=== PATIENT | female | born 1955 | race African-American/Black ===

== ENCOUNTER → 2016-10-24 | Outpatient (CLI) | payer BC ==
[~2016-10-24] MED LIST: ATORVASTATIN; CELLCEPT 250MG250 MG PO; CELLCEPT 5500 MG/TAB PO; FISH OIL500 MG PO; HYZAAR; MAGNESIUM250 M1 PO; MULTI VITAMINS1 TAB PO; NEURONTIN100 MG/CAP; NORCO 325 MG-51 TAB; NORVASC 5MG5 MG/TAB PO; OXYCODONE; PERCOCET 325 MG1 TA2 PO; PLAQUENIL 200M200 MG PO; PREDNISONE20 MG PO; [UNRECOGNIZED DRUG - OTHER]; [UNRECOGNIZED DRUG - OTHER]
== END ==
LOC: MC.RAD 08:40
DX: Z12.31 Encounter for screening mammogram for malignant neoplasm of breast (principal)

== ENCOUNTER → 2018-02-19 | Outpatient (CLI) | payer MEDICARE, BC | LOC: MC.RAD 13:00 | DX: Z12.31 Encounter for screening mammogram for malignant neoplasm of breast (principal) ==

== ENCOUNTER → 2019-04-18 | Outpatient (CLI) | payer MEDICARE, BC | LOC: MC.RAD 14:45 | DX: Z12.31 Encounter for screening mammogram for malignant neoplasm of breast (principal) ==

== ENCOUNTER → 2019-08-01 | Outpatient (CLI) | payer BC, MEDICARE | LOC: COL.RAD 10:30 | DX: M25.572 Pain in left ankle and joints of left foot (principal) | CPT/HCPCS: J3301; Q9967 ==

== ENCOUNTER 2019-11-18 11:32 | Inpatient (IN) | payer BC, MEDICARE ==
[2019-11-18] VITALS (151 sets, daily range): BP systolic 152; BP diastolic 64–75; PULSE 108–111; TEMP 97.8–98.1; O2SAT 76–100
[~2019-11-18] VITALS: Ht 160 cm; Wt 95.7 kg
[2019-11-18 13:53] LABS: MEAN CELL VOLUME 78 fl (80.0-100.0); MEAN CORPUSCULAR HGB CONC 29 g/dl (33.0-37.0); PLATELET COUNT 235 K/mm3 (130-400); RED BLOOD COUNT 3.96 M/mm3 (4.10-5.30); REDCELL DISTRIBUTION WIDTH-CV 14.8 % (11.5-14.5)
[2019-11-18 14:03] LABS: ALBUMIN 3.7 gm/dL (3.5-5.0); BILIRUBIN,TOTAL 0.6 mg/dL (0.0-1.0); CREATININE, serum 2.06 (0.52-1.25); POTASSIUM 3.3 mmol/L (3.4-5.0); TOTAL PROTEIN 7.9 gm/dL (6.4-8.2)
[2019-11-18 14:07] LABS: HEMATOCRIT 30.7 % (37.0-47.0); HEMOGLOBIN 8.9 g/dl (12.5-16.0); MEAN CORPUSCULAR HEMOGLOBIN 22 pg (27.0-31.0)
[2019-11-18 14:11] LABS: BAND 44 % (0-10); LYMPHOCYTE 3 % (20.0-51.0); NEUTROPHILS 53 % (42.0-75.2)
[2019-11-18 14:12] LABS: ANISOCYTOSIS 1+; HYPOCHROMIA 2+; MICROCYTOSIS 1+
[2019-11-18 14:13] LABS: PLATELET ESTIMATE NORMAL (NORMAL); TARGET CELLS 1+; TEAR DROP CELLS 1+
[2019-11-18 17:19] LABS: COLLECTION METHOD CLEAN CATCH
[2019-11-18 17:30] LABS: MUCOUS Present /lpf; PH 5 (5-8); URINE APPEARANCE Clear; URINE BACTERIA Rare /hpf; URINE BILIRUBIN Negative (NEGATIVE); URINE BLOOD Negative (NEGATIVE); URINE COLOR Yellow; URINE GLUCOSE Negative (NEGATIVE); URINE KETONE Negative (NEGATIVE); URINE LEUKOCYTE ESTERASE 2+ (NEGATIVE); URINE NITRATE Negative (NEGATIVE); URINE PROTEIN(semi-quant) 1+ (NEGATIVE); URINE UROBILINOGEN Negative (NEGATIVE)
[2019-11-18] MEDS ORDERED: LIPITOR 10MG10 MG PO (18:44)
[2019-11-18] MEDS ORDERED: FLEXERIL 1010 MG/TAB PO (18:45)
[2019-11-18] MEDS ORDERED: CYMBALTA 30MG30 MG PO (18:45)
[2019-11-18] MEDS ORDERED: FERRO-TIME325 MG PO (18:46)
[2019-11-18] MEDS ORDERED: NORCO 325 MG-101 TAB PO (18:47)
[2019-11-18] MEDS ORDERED: PLAQUENIL 200M200 MG PO (18:47)
[2019-11-18] MEDS ORDERED: NEURONTIN300 MG/CAP PO (18:47)
[2019-11-18] MEDS ORDERED: HYZAAR 12.5 MG-1 TAB PO (18:48)
[2019-11-18] MEDS ORDERED: ATIVAN 1MG T1 MG/TAB PO (18:48)
[2019-11-18] MEDS ORDERED: MAG-OX 400400 MG/TAB PO (18:48)
[2019-11-18] MEDS ORDERED: CELLCEPT 5500 MG/TAB PO (18:49)
[2019-11-18] MEDS ORDERED: PREDNISONE 2.52.5 MG PO (18:50)
[2019-11-18] MEDS ORDERED: DITROPAN 5MG TAB5 MG PO (18:50)
[2019-11-18] MEDS ORDERED: PRILOSEC 20MG20 MG PO (18:50)
[2019-11-18] MEDS ORDERED: ALDACTONE 25MG25 M1 PO (18:51)
[2019-11-18] MEDS ORDERED: NEUPRO3 MG/24 HR TD (18:51)
[2019-11-18] MEDS ORDERED: TOPAMAX 25MG25 M1 PO (18:52)
[2019-11-18] MEDS ORDERED: VITAMIN D 50,1.25 MG PO (18:53)
[2019-11-19] VITALS (468 sets, daily range): BP systolic 118–165; BP diastolic 55–90; PULSE 66–101; TEMP 98–99.1; O2SAT 35–100
[2019-11-19 05:30] LABS: MEAN CELL VOLUME 75 fl (80.0-100.0); MEAN CORPUSCULAR HGB CONC 31 g/dl (33.0-37.0); PLATELET COUNT 208 K/mm3 (130-400); RED BLOOD COUNT 3.63 M/mm3 (4.10-5.30); REDCELL DISTRIBUTION WIDTH-CV 14.6 % (11.5-14.5)
[2019-11-19 05:33] LABS: HEMATOCRIT 27.2 % (37.0-47.0); HEMOGLOBIN 8.3 g/dl (12.5-16.0); MEAN CORPUSCULAR HEMOGLOBIN 23 pg (27.0-31.0)
[2019-11-19 05:39] LABS: ALBUMIN 3.1 gm/dL (3.5-5.0); BILIRUBIN,TOTAL 0.8 mg/dL (0.0-1.0); CALCIUM 8.4 mg/dL (8.4-10.2); CREATININE, serum 1.6 (0.52-1.25); POTASSIUM 4.2 mmol/L (3.4-5.0); TOTAL PROTEIN 7.1 gm/dL (6.4-8.2)
[2019-11-19 06:08] LABS: BAND 41 % (0-10); LYMPHOCYTE 2 % (20.0-51.0); METAMYELOCYTE 2 % (0-0); NEUTROPHILS 50 % (42.0-75.2); PLATELET ESTIMATE NORMAL (NORMAL)
[2019-11-19 06:09] LABS: SPHEROCYTE 1+
[2019-11-19] MEDS ORDERED: NEURONTIN300 MG/CAP PO (10:44)
--- NOTE | 2019-11-19 14:06 | NUR ---
Attempted to call report to KRISTIN Echols at this time, RN unavialable at the [facility] to transfer to room 308
--- NOTE | 2019-11-19 14:26 | NUR ---
Report phoned to KRISTIN Echols
--- NOTE | 2019-11-19 14:45 | NUR ---
PATIENT TRANSFERRED TO ROOM 308 FROM [facility]. ARRIVED ON FLOOR VIA ACCOMPANIED BY GIGI FOSTER. UPON ARRIVAL PATIENT A/O X 4. ALERT, COOPERATIVE, ANXIOUS. TRANSFERRED TO BED WITH 1:1 ASSIST. REPORTING C/O RIGHT LEG AND HIP PAIN. NO SKIN ISSUES NOTED UPON OBSERVATION. LARGE EPISODE OF INCONTINENT URINE. PERSONAL HYGIENE COMPLETED. NO C/O SOA OR CHEST PAIN. DAUGHTER IN ATTENDANCE. ORIENTED TO ROOM AND FLOOR.
--- NOTE | 2019-11-19 14:45 | NUR ---
Pt transported to room 308 - heavy 1 assist from wheelchair to bed. at bedside. KRISTIN Echols in room for transfer of care.
--- NOTE | 2019-11-19 20:40 | NUR ---
Shift assessment complete. Patient ambulated with max assist x2 and gait belt to [facility]. Did not tolerate well. Repositioned in bed with assist x3. States pain 10/10 in right hip. Prn pain medication given. Per pt, ambulating caused more pain. Discussed external catheter, pt and daughter agreeable to plan. Will continue to assess.
--- NOTE | 2019-11-19 21:00 | NUR ---
Patient remains extremely restless after IV pain medication. Unable to reposition to make her comfortable. Bed alarm going off frequently d/t patient trying to get comfortable/get out of bed. IV ativan given per request. Repositioned with assist x3. Denies further needs at this time. Will continue to monitor.
--- NOTE | 2019-11-19 22:00 | NUR ---
Patient in bed, very restless. States she has been incontinent. Devi-care provided, bed pad changed, external catheter placed per pt request. States her pain is "better." Changed into yellow gown d/t high fall risk. Patient asleep before staff left the room. Daughter, Fallon, requesting her VS be rechecked after MN. Daughter also declining SCD's. Patient appears comfortable. Bed alarm on, call light within reach. Daughter declines any further needs at this time. Will continue to monitor.
[2019-11-20] VITALS (9 sets, daily range): BP systolic 123–186; BP diastolic 51–96; PULSE 83–130; TEMP 98.1–103.2
--- NOTE | 2019-11-20 02:14 | NUR ---
Patient in bed, sleeping. Appears comfortable. Daughter requesting we not disturb her if she's sleeping. Adequate respirations. Will continue to monitor.
--- NOTE | 2019-11-20 05:33 | NUR ---
Patient in bed, awake. Daughter remains at bedside. Pt is excited that she slept all night. States pain 6/10. Prn pain medication given. External catheter noted to be leaking. Will change external catheter and bed pad. Patient agreeable to plan. Denies further needs at this time. Will continue to monitor.
[2019-11-20 05:39] LABS: MEAN CELL VOLUME 74 fl (80.0-100.0); MEAN CORPUSCULAR HGB CONC 30 g/dl (33.0-37.0); PLATELET COUNT 150 K/mm3 (130-400); RED BLOOD COUNT 3.63 M/mm3 (4.10-5.30); REDCELL DISTRIBUTION WIDTH-CV 14.9 % (11.5-14.5)
[2019-11-20 05:48] LABS: ALBUMIN 2.8 gm/dL (3.5-5.0); BILIRUBIN,TOTAL 0.5 mg/dL (0.0-1.0); CALCIUM 8.5 mg/dL (8.4-10.2); CREATININE, serum 1.34 (0.52-1.25); POTASSIUM 4.1 mmol/L (3.4-5.0); TOTAL PROTEIN 6.6 gm/dL (6.4-8.2)
[2019-11-20 06:01] LABS: HEMOGLOBIN 8.1 g/dl (12.5-16.0); MEAN CORPUSCULAR HEMOGLOBIN 22 pg (27.0-31.0)
[2019-11-20 06:12] LABS: BAND 1 % (0-10); BASOPHIL 24 % (0-2); NEUTROPHILS 64 % (42.0-75.2)
--- NOTE | 2019-11-20 09:56 | NUR ---
Initial visit; Patient thanked Financial Advisor for looking in on her and offering spiritual and emotional care, especially prayer.
--- NOTE | 2019-11-20 11:43 | NUR ---
PATIENT BACK FROM MRI. PER SUPERVISOR VENEER UNABLE TO COMPLETE MRI D/T ANXIETY AND MOVEMENT. DR HUGHES NOTIFIED. NO NEW ORDERS AT THIS TIME.
--- NOTE | 2019-11-20 13:06 | NUR ---
Follow-up visit; Patient in need of additional assistance, Bore Miner Operator contacted nurse.
--- NOTE | 2019-11-20 13:52 | NUR ---
Primary nurse was assisted with [phone] patient care by [facility] student Roxana Jean and [facility] instructor Ailin Colmenares RN-BC.
--- NOTE | 2019-11-20 15:24 | NUR ---
Song Lyricist met with patient to discuss discharge planning. Patient lives in [place] with her Cosme (ph#[phone]) [address] Vann for primary care. Patient obtains medications from [facility] with no difficulties. Patient uses a CPAP and has been using a cane for about the last week or so. Patient reports she is normally independent with ADLS but has had difficulty within the last week. Patient states her is her DPOA-HC although SW did not locate a copy in the EMR. Patient reports she plans to return home upon discharge. PT/OT ordered. SW to continue to monitor to ensure safe discharge.
[2019-11-20 15:44] LABS: COLLECTION METHOD CLEAN CATCH
[2019-11-20 15:55] LABS: PH 5 (5-8); SQUAMOUS EPITHELIAL 0-2 /hpf; URINE APPEARANCE Clear; URINE BACTERIA None Seen /hpf; URINE BILIRUBIN Negative (NEGATIVE); URINE BLOOD 2+ (NEGATIVE); URINE COLOR Yellow; URINE GLUCOSE Negative (NEGATIVE); URINE KETONE Negative (NEGATIVE); URINE LEUKOCYTE ESTERASE Negative (NEGATIVE); URINE NITRATE Negative (NEGATIVE); URINE PROTEIN(semi-quant) 2+ (NEGATIVE); URINE UROBILINOGEN Negative (NEGATIVE)
--- NOTE | 2019-11-20 19:27 | NUR ---
1700: PATIENT BACK FROM MRI, REPORT FROM FARM ASSISTANT THAT SEDATION WAS NOT USED. UPON ARRIVAL TO FLOOR PATIENT SHIVERING AND C/O BEING COLD. SEE FLOWSHEET FOR FVS OBTAINED WITH FEVER AND TACHYCARDIA. DR. HUGHES NOTIFIED. ORDERS FOR TYLENOL 650MG PO NOW AND CALL INFECTIOUS DISEASE. 1800: CALL TO DR RODRIGUEZ NOTIFIED OF FEVER AND PATIENT CONDITION. ORDERS RECEIVED FOR VANCOMYCIN 1GM NOW STAT THEN Q12 HOURS X 14 DAYS PHARMACY TO DOSE. VANCOMYCIN STARTED ORDERED. SEE FLOWSHEET FOR CONTINUED VITAL SIGN MONITORING WITH CONTINUED FEVER AND TACHYCARDIA. DR RIDER NOTIFIED. NO NEW ORDERS RECEIVED. REPORT GIVEN TO COMPOUNDING TECHNICIAN RN. DAUGHTER IN ROOM. AWARE OF PATIENT CONDITION AND PLAN OF CARE. NO CONCERNS AT THIS TIME.
--- NOTE | 2019-11-20 19:57 | NUR ---
CALL TO DR ANDRES. COMMUNICATED PATIENT CONDITION AT THIS TIME WITH CONTINUED TACHYCARDIA AND TEMPERATURE DOWN TO 99.2. REVIEWED PATIENT CHRT WITH PROVIDED. DISCUSSED LABS AND PHONE ORDERS RECEIVED FROM INFECTIOUS DISEASE. NO NEW ORDERS FOR LAB AT THIS TIME. ORDERS RECEIVED FOR LR 500ML BOLUS X 1 NOW THEN CONTINUE NS @ 125ML/HR PREVIOUSLY ORDERED. PROVIDER COMMUNICATION AND ORDERS REVIEWED WITH BISTRO ATTENDANT RN.
--- NOTE | 2019-11-20 20:00 | NUR ---
Recieved report from KRISTIN Echols. Assessment complete. Alert and oriented. Daughter at bedside. C/O pain to right hip and leg pain, rate 8/10. PRN pain meds admininstered as requested. Pt is agigated, can't get comfortable in bed. PRN Ativan administered. Scheduled meds administered. Asissted pt to BSC multiple times, 2 assist with gait belt. Will monitor pt's VS. Tele monitor in place, leads checked. Needs met. Call light within reach.
[2019-11-21] VITALS (9 sets, daily range): BP systolic 135–160; BP diastolic 59–94; PULSE 100–129; TEMP 98.6–101.8
--- NOTE | 2019-11-21 02:26 | NUR ---
Pt requesting pain meds and states she's having a hard time breathing. RR28, SpO2 96% on RA, LCTAB. HR 120's, T 100.8. PRN Dilaudid administered as requested. Elevated HOB. Placed pt on cpap, RR decreased 26. Will continue to monitor pt. Call light within reach. Dtr at bedside.
--- NOTE | 2019-11-21 03:00 | NUR ---
Pt temp 101.8, HR 124, SpO2 96% on RA, RR 28, BP 156/[address] Wyatt. Per MD, PRN 650mg Tylenol, increase NS to 150ml/hr. Orders carried out. Pt placed on cpap, RT monitored pt, HOB elevated. Will monitor pt. Call light within reach.
--- NOTE | 2019-11-21 06:24 | NUR ---
Pt assisted to recliner chair. no complaints made. Needs met. call light within reach.
--- NOTE | 2019-11-21 06:49 | NUR ---
Report given to KRISTIN Jaeger.
[2019-11-21 07:53] LABS: MEAN CELL VOLUME 75 fl (80.0-100.0); MEAN CORPUSCULAR HGB CONC 30 g/dl (33.0-37.0); PLATELET COUNT 193 K/mm3 (130-400); RED BLOOD COUNT 3.97 M/mm3 (4.10-5.30); REDCELL DISTRIBUTION WIDTH-CV 14.6 % (11.5-14.5)
[2019-11-21 07:58] LABS: HEMATOCRIT 29.8 % (37.0-47.0); HEMOGLOBIN 8.8 g/dl (12.5-16.0); MEAN CORPUSCULAR HEMOGLOBIN 22 pg (27.0-31.0)
[2019-11-21 08:03] LABS: ALBUMIN 3.2 gm/dL (3.5-5.0); BILIRUBIN,TOTAL 0.6 mg/dL (0.0-1.0); CALCIUM 8.7 mg/dL (8.4-10.2); CREATININE, serum 1.2 (0.52-1.25); POTASSIUM 3.7 mmol/L (3.4-5.0); TOTAL PROTEIN 7.6 gm/dL (6.4-8.2)
[2019-11-21 08:14] LABS: LYMPHOCYTE 2 % (20.0-51.0); NEUTROPHILS 88 % (42.0-75.2)
[2019-11-21 08:15] LABS: PLATELET ESTIMATE NORMAL (NORMAL)
--- NOTE | 2019-11-21 11:16 | NUR ---
Follow-up visit; Patient experiencing results of medications, Drying Supervisor spoke with both her and her daughter, letting them know there is a Drying Supervisor available to them throughout patient's stay. Drying Supervisor offered blessings and encouragement.
--- NOTE | 2019-11-21 13:00 | NUR ---
PT HAS BEEN ANXIOUS AND REPEATITVLY NEEDING TO GO TO BATHROOM, HIP PAIN HAS GOTTEN WORSE WITH GETTING UP SEVERAL TIMES. PT TERRI ASKED ABOUT A CATHETER, DISCUSSED THE EXTERNAL CATH, PT DAUGHTER SAID THEY HAVE TRIED IT AND IT WORKS THAT IT WOULD BE A GOOD ONE USE AGAIN. THIS NURSE APPLIED FEMALE EXTERNAT CATH
--- NOTE | 2019-11-21 13:50 | NUR ---
Primary nurse was assisted with [phone] patient care by [employer] [facility] student Roxana Jean and [employer] [employer] [employer] instructor Ailin Colmenares RN-BC.
--- NOTE | 2019-11-21 16:11 | NUR ---
Console Operator attended clinical rounds with the team. SW reviewed PT/OT notes which state patient may need post acute rehab but will continue to monitor. BYRON spoke with DUNCAN Serrano who advised patient likely will be here through the weekend. SW met with patient to discuss PT/OT notes. SW provided Medicare.gov list of SNFs and IPR units in her area. Patient will review and SW will continue to follow.
--- NOTE | 2019-11-21 19:00 | NUR ---
Pt in extreme discomfort, groaning and crying out in pain. Pt rates pain unbearable 04/26. Dilaudid was given by offgoing day shift RNHeide. Pt didn't situate in bed well. Pt report rcvd from KRISTIN Jaeger. Call light within reach. Will continue to monitor.
[2019-11-22] VITALS (8 sets, daily range): BP systolic 138–199; BP diastolic 61–81; PULSE 102–116; TEMP 99–103.1
[2019-11-22 07:10] LABS: MEAN CELL VOLUME 73 fl (80.0-100.0); MEAN CORPUSCULAR HGB CONC 30 g/dl (33.0-37.0); PLATELET COUNT 190 K/mm3 (130-400); RED BLOOD COUNT 3.79 M/mm3 (4.10-5.30); REDCELL DISTRIBUTION WIDTH-CV 14.3 % (11.5-14.5)
[2019-11-22 07:14] LABS: HEMATOCRIT 27.7 % (37.0-47.0); HEMOGLOBIN 8.4 g/dl (12.5-16.0); MEAN CORPUSCULAR HEMOGLOBIN 22 pg (27.0-31.0)
[2019-11-22 07:40] LABS: CALCIUM 8.7 mg/dL (8.4-10.2); CREATININE, serum 1.28 (0.52-1.25); POTASSIUM 3.3 mmol/L (3.4-5.0)
--- NOTE | 2019-11-22 07:41 | NUR ---
Pt had an uneventful shift. Maintained pain control, and did not express discomfort. Pt has been febrile through the night, gave tylenol and lowered temperature. Pt slept well. No further concerns Report given to KRISTIN Keller.
--- NOTE | 2019-11-22 07:52 | NUR ---
Vancomycin Follow-up Pharmacy Note Current regimen: Vancomycin 1 gm IV q12h Vancomycin trough: 11.33 Adjustments: Will increase Vancomycin to 1.25 gm IV q12h. Pharmacy will continue to monitor and check a Vancomycin trough on 11/24/19.
[2019-11-22 08:27] LABS: BAND 3 % (0-10); EOSINOPHIL 2 % (0-4); LYMPHOCYTE 16 % (20.0-51.0); NEUTROPHILS 76 % (42.0-75.2); PLATELET ESTIMATE NORMAL (NORMAL)
--- NOTE | 2019-11-22 08:30 | NUR ---
Pt assessment complete. Pt laying in bed upon entry, she arouses to voice. She is A/O x4. Pt's breathing is labored and wheezy, pt endorses SOB. Pt reports R hip pain, 8/10 PRN pain medications administered. Pt denies N/V. External catheter in place. Repositioning provided. No needs at this time. Call light within reach. Will continue to monitor.
[2019-11-22 10:04] LABS: ARTERIAL BLD GAS O2 SATURATION 94.4 % (92-100); ARTERIAL BLD GAS TCO2 CT 18.7; ARTERIAL BLOOD GAS HCO3 17.8 meq/L (22-26); ARTERIAL BLOOD GAS PO2 67.5 mmHg (80-100); ARTERIAL BLOOD GAS pH 7.44 (7.35-7.45)
--- NOTE | 2019-11-22 18:30 | NUR ---
PT report received from Arianna FOSTER at bedside. PT is resting in bed and reports that she is having some pain to her right foot. When this contract technical writer moves or touched PT foot PT is noted to pull back and make pain sounds. Call light within reach and bedside table is at the side of bed with beverages within reach. Will continue to monitor.
--- NOTE | 2019-11-22 19:00 | NUR ---
Pt continued to report pain to R hip, PRN pain medications administered. Pt placed on 2L O2 via NC for SOB and per ABG results. Pt did sleep for a couple of hours during the afternoon. External catheter still in place. Repositioning done. Pt did not get out of bed today. Pt eating at this time. No needs at this time. Call light within reach.
--- NOTE | 2019-11-22 20:00 | NUR ---
PT is resting in bed with pain at her right foot with any movement or touch. PT daughter is at bedside. PT repositioned to her rightside and requires slow delicate movements to reduce pain with movement. PT is noted to have edema to her bilat feet and warmth to bilat L.E. PT has external catheter in place D/T pain with any movement resulting in difficulty using bedpan, bedside commode, bathroom, or with changing briefs. PT is A&Ox4, is able to make wants/needs known and has call light at her side. Bedside table at side of bed with beverages within reach. No s/s of distress noted at this time. Patient is watching TV and is noted to have tachypnea which this program writer suspects is related to PT's paim. Will continue to monitor.
--- NOTE | 2019-11-22 22:00 | NUR ---
PT has continued to have pain to her right foot and left hip requiring her PRN Dilaudid that helps but does not bring PT's pain down to a manageable level. PT and daughter educated on PO Enigma and that with PT's pain level and reduced relief she has been receiving from the IV Dilaudid that this residential mortgage underwriter advises that she take her PRN PO Enigma at this time as well so that she can receive longer acting pain relief and the IV Dilaudid at this time so that her pain can quickly become reduced which will then allow the Enigma to be more effective. PT and daughter state understanding and request both PRN medications be given. PT has been tolerating her IV Dilaudid without respiratory depression. Will continue to monitor. Call light within reach.
[2019-11-23] VITALS (7 sets, daily range): BP systolic 112–142; BP diastolic 58–71; PULSE 86–114; TEMP 98.7–102
--- NOTE | 2019-11-23 03:38 | NUR ---
PT has had more pain relief since taking both her PRN Dilaudid and [place] at about 2230 hours. PT has been resting peacefully in bed alternating between lying in bed with eyes open and closed with daughter at bedside. PT has been easy to arouse when she has had her eyes closed. PT has needed another dose of her PO norco but has not needed anymore IV Dilaudid since last administration at about 2220. PT is resting peacefully in bed wearing CPAP with eyes closed and TV off. Daughter remains at bedside. Call light within reach and beverage is on bedside table within reach. No s/s of distress noted. Will continue to monitor.
--- NOTE | 2019-11-23 07:00 | NUR ---
PT report given to Arianna FOSTER. PT resting in bed with eyes closed and no s/s of distress noted.
[2019-11-23 07:48] LABS: MEAN CELL VOLUME 75 fl (80.0-100.0); MEAN CORPUSCULAR HGB CONC 30 g/dl (33.0-37.0); PLATELET COUNT 222 K/mm3 (130-400); RED BLOOD COUNT 3.37 M/mm3 (4.10-5.30); REDCELL DISTRIBUTION WIDTH-CV 14.6 % (11.5-14.5)
[2019-11-23 07:50] LABS: HEMATOCRIT 25.2 % (37.0-47.0); HEMOGLOBIN 7.6 g/dl (12.5-16.0); MEAN CORPUSCULAR HEMOGLOBIN 23 pg (27.0-31.0)
[2019-11-23 08:02] LABS: CALCIUM 8.7 mg/dL (8.4-10.2); CREATININE, serum 1.46 (0.52-1.25); MAGNESIUM 1.8 mg/dL (1.6-2.3); POTASSIUM 3.3 mmol/L (3.4-5.0)
[2019-11-23 08:39] LABS: BAND 3 % (0-10); EOSINOPHIL 1 % (0-4); LYMPHOCYTE 8 % (20.0-51.0); METAMYELOCYTE 2 % (0-0); NEUTROPHILS 81 % (42.0-75.2)
[2019-11-23 08:41] LABS: MICROCYTOSIS 1+; PLATELET ESTIMATE NORMAL (NORMAL)
--- NOTE | 2019-11-23 09:12 | NUR ---
PT aox3. Able to make needs known. reports rt hip, leg and great toe tenderness. rt leg non-pitting 2+ edema. no warmth or redness noted. pt on Heparin. leg elevated on pillow to assist with edema. pt encouraged to move extremity more. weak moist cough without exudate. pt reports 'feeling better' after breathing tx. lung sounds clear with lt lower lobe diminished. tolerating new IVABX. tolerating PO intake. pt able to roll from side to side with much effort on her end and min to mod assistance by staff due to pain. skin intact. external catheter in place and draining.
[2019-11-24] VITALS (8 sets, daily range): BP systolic 90–131; BP diastolic 40–65; PULSE 75–121; TEMP 97.6–103
--- NOTE | 2019-11-24 05:50 | NUR ---
PT WENT FROM 102 TEMP TO 98.8. I.S. ENCOURAGED. PERCOCET FOR RLE PAIN.
--- NOTE | 2019-11-24 07:00 | NUR ---
Pt laying in bed. Has c/o pain and discomfort. Student Nurse Manasa to do assessment and medication administration. Talked to Physical Therapy regarding physical therapy and medication administration to help with PT. Call light within reach, breakfast is being eaten at this time. Will continue to monitor pain. No further concern at this time.
[2019-11-24 08:43] LABS: MEAN CELL VOLUME 74 fl (80.0-100.0); MEAN CORPUSCULAR HGB CONC 30 g/dl (33.0-37.0); PLATELET COUNT 193 K/mm3 (130-400); RED BLOOD COUNT 3.21 M/mm3 (4.10-5.30); REDCELL DISTRIBUTION WIDTH-CV 14.4 % (11.5-14.5)
[2019-11-24 08:47] LABS: HEMATOCRIT 23.7 % (37.0-47.0); HEMOGLOBIN 7.2 g/dl (12.5-16.0); MEAN CORPUSCULAR HEMOGLOBIN 22 pg (27.0-31.0)
[2019-11-24 08:52] LABS: ALBUMIN 2.7 gm/dL (3.5-5.0); BILIRUBIN,TOTAL 0.2 mg/dL (0.0-1.0); CALCIUM 8.7 mg/dL (8.4-10.2); CREATININE, serum 1.69 (0.52-1.25); TOTAL PROTEIN 6.8 gm/dL (6.4-8.2)
--- NOTE | 2019-11-24 08:53 | NUR ---
Patient is alert and oriented.complains of right hip pain, worse on movement. Patient shows no sign og skin breakdown on assessment.Physical therapy in to work with patient.
--- NOTE | 2019-11-24 09:19 | NUR ---
Follow-up; Patient with Physical Therapist but appeared happy to see Furnace Caretaker who wished her a "Good morning," and will see her later.
[2019-11-24 09:39] LABS: ANISOCYTOSIS 2+; BAND 5 % (0-10); EOSINOPHIL 3 % (0-4); HYPOCHROMIA 2+; LYMPHOCYTE 22 % (20.0-51.0); METAMYELOCYTE 3 % (0-0); MICROCYTOSIS 1+; NEUTROPHILS 59 % (42.0-75.2); PLATELET ESTIMATE NORMAL (NORMAL); POIKILOCYTOSIS 1+
--- NOTE | 2019-11-24 09:44 | NUR ---
Computer Help Desk Specialist attended clinical rounds with the team. Patient reports she still has pain, especially when coughing. SW met with patient to revisit potential need for post acute rehab. Patient states she needs to talk with her who should be here this afternoon. SW will follow up with patient and this afternoon.
--- NOTE | 2019-11-24 12:54 | NUR ---
Pt spiked a fever of 102.8, gave tylenol 650mg to reduce, and EKG was performed. Will continue to monitor.
--- NOTE | 2019-11-24 16:24 | NUR ---
Tile Grinder followed up with patient who reports her will not be here until after 1700. SW contacted patient's Cosme and left a message. SW to continue to follow.
--- NOTE | 2019-11-24 17:30 | NUR ---
PT IV RESTARTED BY KRISTIN HERNANDEZ. LR IS RUNNING AT 1000ML/HR. PT HAS COMPLAINT OF PAIN 04/26. DILAUDID 0.5MG GIVEN. PT STATES NO MORE NEEDS AT THIS TIME. WILL CONTINUE TO MONITOR. CALL LIGHT WITHIN REACH.
--- NOTE | 2019-11-24 19:31 | NUR ---
REPORT GIVEN TO KRISTIN VASQUEZ. NO FURTHER CONCERNS
--- NOTE | 2019-11-24 19:32 | NUR ---
Received report from Elba. Seen patient awake, lying on bed. on the bedside. With INT on left forearm, infusing Levofloxacin. With external catheter. Patient is alert and oriented. With pain on her right hip.
--- NOTE | 2019-11-24 20:50 | NUR ---
Patient states she has pain on her right hip and leg, pain score of 5/10. [place] PRN given.
--- NOTE | 2019-11-25 00:50 | NUR ---
Patient complains of pain on her rip hip and leg. pain score of 6/10. Dilaudid PRN given. Patient on NPO now. Instructed and aware.
[2019-11-25 03:23] VITALS: BP 141/63; PULSE 96; TEMP 99
--- NOTE | 2019-11-25 06:04 | NUR ---
Patient was afebrile the whole shift. With complains of pain on her right hip and leg. Dilaudid PRN given. Maintained on NPO. Will endorse to day shift nurse.
[2019-11-25 07:41] LABS: BASO % 0.3 % (0.0-2.0); EOS # 0.2 (0.0-0.7); EOS % 2.6 % (0-4.0); GRAN # 5.2 (1.4-6.5); GRAN % 67.8 % (42.2-75.2); LYMPH # 1.2 (1.2-3.4); LYMPH % 15.8 % (20.0-51.0); MEAN CELL VOLUME 75 fl (80.0-100.0); MEAN CORPUSCULAR HGB CONC 29 g/dl (33.0-37.0); MONO # 0.9 (0.1-0.6); MONO % 12.1 % (1.7-9.3); PLATELET COUNT 238 K/mm3 (130-400); RED BLOOD COUNT 3.31 M/mm3 (4.10-5.30); REDCELL DISTRIBUTION WIDTH-CV 14.6 % (11.5-14.5)
[2019-11-25 07:44] LABS: HEMATOCRIT 24.8 % (37.0-47.0); HEMOGLOBIN 7.3 g/dl (12.5-16.0); MEAN CORPUSCULAR HEMOGLOBIN 22 pg (27.0-31.0)
[2019-11-25 08:01] VITALS: BP 119/73; PULSE 69; TEMP 98.9
[2019-11-25 08:03] LABS: CALCIUM 8.8 mg/dL (8.4-10.2); CREATININE, serum 1.62 (0.52-1.25)
--- NOTE | 2019-11-25 10:47 | NUR ---
Follow-up visit; Patient thanked Service Assistant for looking in on her again today, offering comfort, strength and spiritual care, especially prayer. Patient appears to not be as confused and perhaps a little stronger. Service Assistant will continue to offer support.
[2019-11-25 14:42] VITALS: BP 146/87; PULSE 113; TEMP 99
--- NOTE | 2019-11-25 15:13 | NUR ---
Moulder Operator attended clinical rounds with the team then met with patient and her daughter, Fallon to follow up on post acute rehab. Patient and patient's daughter advised they need to talk with patient's Cosme before making a decision. SW advised that a choice needed to be made prior to day of discharge. SW provided contact information to patient's daughter Fallon. SW provided update to Hospitalist. SW to continue to follow.
[2019-11-25 17:08] VITALS: BP 155/71; PULSE 106; TEMP 103
--- NOTE | 2019-11-25 19:30 | NUR ---
REPORT GIVEN TO KRISTIN Oreilly. PT STATES NO NEEDS FOR ANYTHING RIGHT NOW. NO FURTHER CONCERNS AT THIS TIME.
[2019-11-25 19:49] VITALS: BP 126/63; PULSE 98; TEMP 100.2
--- NOTE | 2019-11-25 20:10 | NUR ---
Pt doing ok. Alert and oriented, with vss, other than temp. Fever or 100.3. Has been having fevers previously. Asymptommatic. Heart and lung sounds normal. Bowel sounds hypoactive all quad. Has external cath in place, clear yellow urine. STates she has not had BM since shes been here, on stool softener and miralax. BLE edema, 1-2+. Pedal pulses weak. Does c/o pain to right hip, prn norco given. PT denies needs. Call light within reach, will continue to monitor
--- NOTE | 2019-11-25 21:32 | NUR ---
Pt calls and c/o right hip and leg pain, prn flexeril given along with ativan.
[2019-11-25 23:48] VITALS: BP 124/74; PULSE 83; TEMP 99.2
[2019-11-26 04:06] VITALS: BP 128/62; PULSE 82; TEMP 99.1
--- NOTE | 2019-11-26 05:46 | NUR ---
Pt has done well throughout night, no new complaints. Does still c/o R hip pain. PRN norco given. PT receiving doxy, does c/o mild burning but no infiltration noted. Pt denies needs at this time. CAll light within reach, will continue to monitor
[2019-11-26 06:20] LABS: BASO % 0.4 % (0.0-2.0); EOS # 0.2 (0.0-0.7); GRAN % 51.8 % (42.2-75.2); LYMPH # 2.6 (1.2-3.4); LYMPH % 33.9 % (20.0-51.0); MEAN CELL VOLUME 75 fl (80.0-100.0); MEAN CORPUSCULAR HGB CONC 29 g/dl (33.0-37.0); MEAN PLATELET VOLUME 13.4 fl (7.4-10.4); MONO # 0.8 (0.1-0.6); PLATELET COUNT 227 K/mm3 (130-400); RED BLOOD COUNT 3.27 M/mm3 (4.10-5.30); REDCELL DISTRIBUTION WIDTH-CV 14.6 % (11.5-14.5)
[2019-11-26 06:24] LABS: CALCIUM 8.7 mg/dL (8.4-10.2); CREATININE, serum 1.48 (0.52-1.25); POTASSIUM 3.6 mmol/L (3.4-5.0)
[2019-11-26 06:31] LABS: HEMATOCRIT 24.5 % (37.0-47.0); HEMOGLOBIN 7.2 g/dl (12.5-16.0); MEAN CORPUSCULAR HEMOGLOBIN 22 pg (27.0-31.0)
--- NOTE | 2019-11-26 07:00 | NUR ---
Report rcvd from KRISTIN Oreilly. Pt sleeping in bed at time of bedside report. No concerns at this time. No further concerns.
[2019-11-26 08:26] VITALS: BP 114/53; PULSE 88; TEMP 98.7
--- NOTE | 2019-11-26 10:46 | NUR ---
Rheostat Assembler attended clinical rounds with the team. Patient to be transferred to [facility]. No additional needs at this time.
--- NOTE | 2019-11-26 11:01 | NUR ---
PT HAS BEEN ACCEPTED TO [facility] IN [place]. WILL AWAIT TRANSPORT INSTRUCTIONS.
[2019-11-26 11:52] VITALS: BP 122/59; PULSE 96; TEMP 99.3
--- NOTE | 2019-11-26 12:18 | NUR ---
Follow-up visit; Patient thanked Water And Fire Technician for looking in on her again today and wishing her well.
--- NOTE | 2019-11-26 12:51 | NUR ---
Pt has been picked up by [facility] for transfer to [facility] in [place]. Contacted KRISTIN Schmidt at [facility] to inform her of departure time. No further concerns.
== END 2019-11-26 12:51 | disposition short-term general hospital (02) | DRG 872 ==
LOC: COL.ER 11:32 → IMCU 17:08 → MEDICAL 17:08
PROVIDERS: Emergency Medicine; Nurse Practitioner Family; Physician Assistant; Student in an Organized Health Care Education/Training Program; ADMIT Hospitalist
DX: A41.3 Sepsis due to Hemophilus influenzae (principal); N39.0 Urinary tract infection, site not specified; N17.9 Acute kidney failure, unspecified; E87.2 Acidosis; M32.9 Systemic lupus erythematosus, unspecified; R65.20 Severe sepsis without septic shock; M32.14 Glomerular disease in systemic lupus erythematosus; I12.9 Hypertensive chronic kidney disease with stage 1 through stage 4 chronic kidney disease, or unspecified chronic kidney disease; M51.36 Other intervertebral disc degeneration, lumbar region; G43.909 Migraine, unspecified, not intractable, without status migrainosus; G62.9 Polyneuropathy, unspecified; M54.31 Sciatica, right side; G47.33 Obstructive sleep apnea (adult) (pediatric); N18.9 Chronic kidney disease, unspecified; E78.5 Hyperlipidemia, unspecified; F32.9 Major depressive disorder, single episode, unspecified; F41.9 Anxiety disorder, unspecified; N32.81 Overactive bladder; K21.9 Gastro-esophageal reflux disease without esophagitis; E87.6 Hypokalemia; D50.9 Iron deficiency anemia, unspecified; Z79.891 Long term (current) use of opiate analgesic; Z79.52 Long term (current) use of systemic steroids; Z88.6 Allergy status to analgesic agent; Z88.2 Allergy status to sulfonamides
CPT/HCPCS: 99223-AI; 99231-AI; 99232-AI; 99233-AI; 99239; A4216; J0696; J1170; J1644; J1720; J1956; J2060; J2185; J2250; J2405; J2543; J2704; J3370; J3475; J3480; J7030; J7050; J7120; J7517

== ENCOUNTER 2019-12-04 07:10 | Outpatient (RCR) | payer BC, MEDICARE ==
[~2019-12-04] VITALS: Ht 160 cm; Wt 107.0 kg
[~2019-12-04 07:10] MED LIST changes: +ALDACTONE 25MG25 M1 PO; +ATIVAN 1MG T1 MG/TAB PO; +CYMBALTA 30MG30 MG PO; +DITROPAN 5MG TAB5 MG PO; +FERRO-TIME325 MG PO; +FLEXERIL 1010 MG/TAB PO; +HYZAAR 12.5 MG-1 TAB PO; +LIPITOR 10MG10 MG PO; +MAG-OX 400400 MG/TAB PO; +NEUPRO3 MG/24 HR TD; +NEURONTIN300 MG/CAP PO; +NORCO 325 MG-101 TAB PO; +PREDNISONE 2.52.5 MG PO; +PRILOSEC 20MG20 MG PO; +TOPAMAX 25MG25 M1 PO; +VITAMIN D 50,1.25 MG PO
[2019-12-04 08:16] VITALS: BP 99/59; PULSE 67; TEMP 97.8
== END 2019-12-04 08:40 | disposition home or self-care (01) ==
LOC: EUO 07:10
DX: R78.81 Bacteremia (principal)
CPT/HCPCS: J0696

== ENCOUNTER 2020-06-14 10:11 | Day surgery (SDC) | payer BC, MEDICARE ==
[2020-06-14] VITALS (9 sets, daily range): BP systolic 93–138; BP diastolic 48–88; PULSE 49–66; TEMP 98.3
[~2020-06-14] VITALS: Ht 162.6 cm; Wt 115.2 kg
[2020-06-14] MEDS ORDERED: HYZAAR 12.5 MG-1 TAB PO (10:50)
[2020-06-14] MEDS ORDERED: ASPIRIN E.C. 8181 MG PO (10:54)
[2020-06-14] MEDS ORDERED: PLAQUENIL 200M200 MG PO (10:55)
[2020-06-14] MEDS ORDERED: CELLCEPT 5500 MG/TAB PO (10:55)
[2020-06-14] MEDS ORDERED: TYLENOL 500MG500 MG PO (10:56)
[2020-06-14 11:38] LABS: CALCIUM 8.9 mg/dL (8.4-10.2); CREATININE, serum 1.28 (0.52-1.25); INR 1.1 (0.8-3.0); POTASSIUM 3.7 mmol/L (3.4-5.0); PROTHROMBIN TIME 12.1 SECONDS (9.7-12.8)
[2020-06-14 11:40] LABS: MEAN CELL VOLUME 77 fl (80.0-100.0); MEAN CORPUSCULAR HGB CONC 30 g/dl (33.0-37.0); MEAN PLATELET VOLUME 12.8 fl (7.4-10.4); PLATELET COUNT 197 K/mm3 (130-400); RED BLOOD COUNT 4.18 M/mm3 (4.10-5.30); REDCELL DISTRIBUTION WIDTH-CV 15.2 % (11.5-14.5)
[2020-06-14 11:59] LABS: HEMOGLOBIN 9.8 g/dl (12.5-16.0); MEAN CORPUSCULAR HEMOGLOBIN 23 pg (27.0-31.0)
[2020-06-14 12:00] LABS: HEMATOCRIT 32.3 % (37.0-47.0)
--- NOTE | 2020-06-14 13:55 | NUR ---
SEE MERGE DOCUMENTATION FOR MEDICATION ADMINISTRATION TIMES AND INTRA/POST PROCEDURE SEDATION ASSESSMENTS.
--- NOTE | 2020-06-14 14:15 | NUR ---
Pt is back from metallurgical laboratory assistant, tr band in place, cms intact distal.
--- NOTE | 2020-06-14 18:00 | NUR ---
Pt ready for discharge. TR band was deflated without any problem over the course of an hour. cms remains intact distal. site covered with bandaid, dressed with gauze and coban. Pt has been amb to br and in room with steady gait, she was able to get dressed and is ready to go. iv dc'd with cath intact, dressing was applied. to exit via wheelchair.
== END 2020-06-14 18:02 | disposition home or self-care (01) ==
LOC: COL.CAR 10:11
PROVIDERS: Internal Medicine Cardiovascular Disease
DX: I25.110 Atherosclerotic heart disease of native coronary artery with unstable angina pectoris (principal); G47.33 Obstructive sleep apnea (adult) (pediatric); E66.9 Obesity, unspecified; D64.9 Anemia, unspecified; K21.9 Gastro-esophageal reflux disease without esophagitis; G25.81 Restless legs syndrome; F32.9 Major depressive disorder, single episode, unspecified; J45.909 Unspecified asthma, uncomplicated; N05.9 Unspecified nephritic syndrome with unspecified morphologic changes; I10 Essential (primary) hypertension; E78.5 Hyperlipidemia, unspecified; G62.9 Polyneuropathy, unspecified; Z88.6 Allergy status to analgesic agent; Z88.1 Allergy status to other antibiotic agents; Z20.828 Contact with and (suspected) exposure to other viral communicable diseases
CPT/HCPCS: J1644; J2250; J3010; Q9967

== ENCOUNTER → 2021-09-01 | Outpatient (CLI) | payer OTHER, MEDICARE ==
[~2021-09-01] MED LIST changes: +ASPIRIN E.C. 8181 MG PO; +TYLENOL 500MG500 MG PO
== END ==
LOC: MC.RAD 11:45
DX: Z12.31 Encounter for screening mammogram for malignant neoplasm of breast (principal)

== ENCOUNTER → 2022-10-25 | Outpatient (CLI) | payer MEDICARE, OTHER | LOC: MC.RAD 13:45 | DX: Z12.31 Encounter for screening mammogram for malignant neoplasm of breast (principal) ==

== ENCOUNTER 2022-11-28 18:36 | Inpatient (IN) | payer MEDICARE ==
[~2022-11-28] VITALS: Ht 165.1 cm; Wt 116.0 kg
[2022-11-28 19:58] LABS: BASO % 0.2 % (0.0-2.0); GRAN # 10.7 K/mm3 (1.4-6.5); LYMPH # 0.8 K/mm3 (1.2-3.4); LYMPH % 6.2 % (20.0-51.0); MEAN CELL VOLUME 76 fl (80.0-100.0); MEAN CORPUSCULAR HGB CONC 31 g/dl (33.0-37.0); MEAN PLATELET VOLUME 12.2 fl (7.4-10.4); MONO # 1.2 K/mm3 (0.1-0.6); MONO % 9.2 % (1.7-9.3); PLATELET COUNT 225 K/mm3 (130-400); RED BLOOD COUNT 4.25 M/mm3 (4.10-5.30); REDCELL DISTRIBUTION WIDTH-CV 14.5 % (11.5-14.5)
[2022-11-28 20:00] LABS: HEMATOCRIT 32.1 % (37.0-47.0); HEMOGLOBIN 9.8 g/dl (12.5-16.0); MEAN CORPUSCULAR HEMOGLOBIN 23 pg (27-31)
[2022-11-28 20:17] LABS: ALBUMIN 3.2 gm/dL (3.4-4.8); BILIRUBIN,TOTAL 0.3 mg/dL (0.2-1.2); C-REACTIVE PROTEIN 24.61 mg/dL (0.00-0.50); CALCIUM 9.7 mg/dL (8.4-10.2); CREATININE, serum 1.51 mg/dL (0.57-1.11); POTASSIUM 3.7 mmol/L (3.5-4.5); TOTAL PROTEIN 8.3 gm/dL (6.2-8.1)
[2022-11-28 20:45] LABS: COLLECTION METHOD CLEAN CATCH
[2022-11-28 20:59] LABS: URINE APPEARANCE Clear (CLEAR/HAZY); URINE COLOR Yellow (YELLOW)
[2022-11-28 21:00] LABS: URINE BLOOD Negative (NEGATIVE); URINE GLUCOSE Negative (NEGATIVE); URINE KETONE Negative (NEGATIVE); URINE NITRATE Negative (NEGATIVE); URINE PROTEIN(semi-quant) 2+ (NEGATIVE); URINE UROBILINOGEN 0.2 E.U/dL (0.2-1.0)
[2022-11-28 21:11] LABS: SQUAMOUS EPITHELIAL 0-2 /hpf (0-10); URINE BACTERIA None Seen /hpf (NONE SEEN); URINE RBC 0-2 /hpf (0-2)
--- NOTE | 2022-11-28 21:15 | NUR ---
Vancomycin Initial Dosing Pharmacy Note Ordering provider: FRED Indication/duration: CELLULITIS - 5 DAYS TOTAL LABS: SCR 1.51, ADJUSTED BODY WEIGHT 84 KG, CRCL ~45 ML/MIN Recommendation: 2000 MG LOADING DOSE THIS EVENING, THEN START 1500 MG Q24 HOURS TOMORROW, 5 DAYS TOTAL THERAPY. Loading dose: 2 grams Maintenance dose: 1.5 grams every 24 hours Trough goal: 10-15 ug/mL NO TROUGH ORDERED AT THIS TIME. PATIENT IS ALSO RECEIVING CEFTRIAXONE X5 DAYS FOR CELLULITIS
[2022-11-28 22:39] VITALS: BP 144/55; PULSE 88; TEMP 99.1
--- NOTE | 2022-11-28 22:56 | NUR ---
PATIENT ESCORTED BY THIS NURSE FROM THE EMERGENCY DEPARTMENT TO ROOM 358. AOX4 AND PLEASANT. SHE WAS ABLE TO MOVE HERSELF BY SLIDING FROM THE ED CART TO THE BED. SHE IS VERY WEAK AND COMPLAINING OF 3/10 PAIN IN LLE, WAS GIVEN MORPHINE IN THE ED. NS IS RUNNING AT 75ML/HR. ON VANCOMYCIN AND ROCEPHIN. HAS A BRIEF ON D/T INCONTINENCE. SHE HAS NOTABLE SWELLING TO BLE AND A PURPLE/SWOLLEN LEFT MIDDLE TOE. CALL LIGHT IN REACH. BED IN LOWEST POSITION. VSS. SHE IS ON FALL RISK PROTOCAL.
--- NOTE | 2022-11-28 23:38 | NUR ---
THIS NURSE PLACED A PUREWICK D/T PATIENT BEING LETHARGIC AND UNABLE TO PIVOT TO COMMODE AT THIS TIME. SHE IS AWARE OF SITUATION AND AGREES TO PUREWICK. SHE WAS ALSO GIVEN 240ML OF GRAPE JUICE, 800ML OF WATER, AND A SANDWICH BOX. BED IN LOWEST POSITION. CALL LIGHT IN REACH.
[2022-11-28 23:40] VITALS: BP 130/49; PULSE 93; TEMP 98.3
[2022-11-29 03:42] VITALS: BP 131/55; PULSE 78; TEMP 97.8
--- NOTE | 2022-11-29 05:50 | NUR ---
ORTHOPEDICS CALLED DUE TO LEFT MIDDLE TOE FRACTURE. THEY WILL SEE HER THIS MORNING.
[2022-11-29 06:21] LABS: BASO % 0.3 % (0.0-2.0); EOS % 0.3 % (0.0-4.0); GRAN # 7.8 K/mm3 (1.4-6.5); GRAN % 71.6 % (42.2-75.2); LYMPH # 1.5 K/mm3 (1.2-3.4); LYMPH % 13.8 % (20.0-51.0); MEAN CELL VOLUME 76 fl (80.0-100.0); MEAN CORPUSCULAR HGB CONC 31 g/dl (33.0-37.0); MEAN PLATELET VOLUME 13.2 fl (7.4-10.4); MONO # 1.5 K/mm3 (0.1-0.6); MONO % 13.6 % (1.7-9.3); PLATELET COUNT 189 K/mm3 (130-400); RED BLOOD COUNT 3.73 M/mm3 (4.10-5.30); REDCELL DISTRIBUTION WIDTH-CV 14.7 % (11.5-14.5)
[2022-11-29 06:22] LABS: HEMATOCRIT 28.4 % (37.0-47.0); HEMOGLOBIN 8.7 g/dl (12.5-16.0); MEAN CORPUSCULAR HEMOGLOBIN 23 pg (27-31)
[2022-11-29 06:34] LABS: CALCIUM 9.1 mg/dL (8.4-10.2); CREATININE, serum 1.34 mg/dL (0.57-1.11); POTASSIUM 3.5 mmol/L (3.5-4.5)
--- NOTE | 2022-11-29 06:40 | NUR ---
appears to be dozing, bedside shift report received from KRISTIN Nelson, Dr Calvillo in to see patient, has been incontinent of urine and CNAs in and care provided
[2022-11-29 07:11] VITALS: BP 135/56; PULSE 82; TEMP 98
--- NOTE | 2022-11-29 07:40 | NUR ---
appears to be dozing, awakened and full assessment completed, see interventions for further info, assisted her with ordering breakfast, vascular lab in to complete doppler
--- NOTE | 2022-11-29 08:40 | NUR ---
Initial visit: Policy Analyst went by room on rounds. Pt was resting and content. Pt has no needs right now, but ask for prayer. Policy Analyst prayed with pt and she appreciated the visit. Policy Analyst will follow up as needed.
--- NOTE | 2022-11-29 09:00 | NUR ---
resting in bed, LAND LEASING INFORMATION CLERK assisted her with wbrushing her teeth and washing her face, occupational therapy in to work with patient
--- NOTE | 2022-11-29 10:00 | NUR ---
repositioning self in bed, c/o some discomfort/pain
--- NOTE | 2022-11-29 10:25 | NUR ---
c/o pain 8/10 to left lower extremity, medicated with norco 10mg 1 tab
[2022-11-29 11:12] VITALS: BP 138/59; PULSE 85; TEMP 98.2
--- NOTE | 2022-11-29 11:55 | NUR ---
SW met with the patient to discuss discharge plan. The patient lives in [place] with her , Cosme (ph#[phone]). She reports independence with ADLs and does not have any DME. The patient's PCP is Dr. Nacho Vann and she receives her medications from [facility] and a mail order. The patient does not have a DPOA-HC and she was not interested in completing one at this time. The patient plans to return home with her upon discharge. *Discharge plan: home with *
--- NOTE | 2022-11-29 12:00 | NUR ---
sitting up in bed watching TV
--- NOTE | 2022-11-29 13:31 | NUR ---
bedside shift report given to KRISTIN Allen
[2022-11-29 16:00] VITALS: BP 141/60; PULSE 89; TEMP 98.6
--- NOTE | 2022-11-29 18:07 | NUR ---
Pt sitting up in bed. Daughter is at the bedside. Pt denies pain/discomfort. Denies chest pain. Denies additional needs. Call light is in her reach.
[2022-11-29] MEDS ORDERED: CYMBALTA 60MG60 MG PO (19:52)
[2022-11-29] MEDS ORDERED: CRESTOR40 MG PO (19:53)
[2022-11-29] MEDS ORDERED: NUVIGIL150 MG PO (19:54)
[2022-11-29] MEDS ORDERED: VITAMIN C500 MG PO (19:55)
[2022-11-29] MEDS ORDERED: VITAMIND3 5000 PO (19:56)
[2022-11-29] MEDS ORDERED: MINOXIDIL 2.5 PO (19:57)
[2022-11-29] MEDS ORDERED: AVODART 0.5MG0.5 MG PO (19:59)
[2022-11-29] MEDS ORDERED: PREDNISONE 5MG5 MG PO (20:00)
[2022-11-29] MEDS ORDERED: MYRBETR50MG PO (20:01)
[2022-11-29 20:02] VITALS: BP 131/58; PULSE 70; TEMP 97.9
[2022-11-29 23:11] VITALS: BP 131/63; PULSE 63; TEMP 98.6
--- NOTE | 2022-11-29 23:29 | NUR ---
Patient assessed around 1950. Reports pain getting better, rated as a 4 to BLE. Received IV ABX per orders. [place] changed. Voices no further questions, needs, or concerns at this time. In bed with call light within reach. High fall risk precautions in place.
[2022-11-30 03:34] VITALS: BP 167/68; PULSE 61; TEMP 98
--- NOTE | 2022-11-30 05:43 | NUR ---
Patient has not needed any PRN pain medication this shift. Voices no questions, needs, or concerns at this time. In bed with call light within reach.
[2022-11-30 06:32] LABS: BASO % 0.1 % (0.0-2.0); GRAN % 88.8 % (42.2-75.2); LYMPH # 0.8 K/mm3 (1.2-3.4); LYMPH % 7.9 % (20.0-51.0); MEAN CELL VOLUME 75 fl (80.0-100.0); MEAN CORPUSCULAR HGB CONC 31 g/dl (33.0-37.0); MEAN PLATELET VOLUME 11.7 fl (7.4-10.4); MONO # 0.3 K/mm3 (0.1-0.6); MONO % 2.9 % (1.7-9.3); PLATELET COUNT 225 K/mm3 (130-400); REDCELL DISTRIBUTION WIDTH-CV 14.6 % (11.5-14.5)
[2022-11-30 06:34] LABS: HEMATOCRIT 30.1 % (37.0-47.0); HEMOGLOBIN 9.3 g/dl (12.5-16.0); MEAN CORPUSCULAR HEMOGLOBIN 23 pg (27-31)
[2022-11-30 06:50] LABS: CALCIUM 9.4 mg/dL (8.4-10.2); CREATININE, serum 1.53 mg/dL (0.57-1.11); MAGNESIUM 2.1 mg/dL (1.6-2.6); POTASSIUM 3.9 mmol/L (3.5-4.5)
[2022-11-30 08:00] VITALS: BP 155/65; PULSE 64; TEMP 98.2
--- NOTE | 2022-11-30 09:31 | NUR ---
Initial visit; Patient experiencing pain in her toe and just not feeling well due to her long time diagnosis of Lupus. Patient and Nurse Wound well acquainted so following a catching up about family, prayed together for healing for Ms Bejarano and offered God's blessings.
[2022-11-30 12:00] VITALS: BP 146/54; PULSE 60; TEMP 98.3
[2022-11-30 16:00] VITALS: BP 132/56; PULSE 63; TEMP 98.1
[2022-11-30 19:44] VITALS: BP 132/57; PULSE 51; TEMP 98.1
--- NOTE | 2022-11-30 20:30 | NUR ---
Initial shift assessment done- states having pain to bilateral feet-pain pill given as ordered, Sitting in chair-
[2022-11-30 23:01] VITALS: BP 147/76; PULSE 52; TEMP 98
--- NOTE | 2022-11-30 23:36 | NUR ---
REport received from [facility] at 2230. Sleeping soundly at this time. Call light within reach.
[2022-12-01 05:23] VITALS: BP 136/58; PULSE 55; TEMP 98.1
[2022-12-01 06:55] LABS: BASO % 0.2 % (0.0-2.0); GRAN # 10.3 K/mm3 (1.4-6.5); GRAN % 83.4 % (42.2-75.2); HEMATOCRIT 29.7 % (37.0-47.0); HEMOGLOBIN 9.2 g/dl (12.5-16.0); LYMPH % 8.1 % (20.0-51.0); MEAN CELL VOLUME 76 fl (80.0-100.0); MEAN CORPUSCULAR HEMOGLOBIN 24 pg (27-31); MEAN CORPUSCULAR HGB CONC 31 g/dl (33.0-37.0); MEAN PLATELET VOLUME 13.2 fl (7.4-10.4); MONO % 7.7 % (1.7-9.3); PLATELET COUNT 227 K/mm3 (130-400); RED BLOOD COUNT 3.89 M/mm3 (4.10-5.30)
[2022-12-01 07:03] LABS: CALCIUM 9.5 mg/dL (8.4-10.2); CREATININE, serum 1.4 mg/dL (0.57-1.11); POTASSIUM 3.8 mmol/L (3.5-4.5)
[2022-12-01 08:26] VITALS: BP 167/58; PULSE 66; TEMP 98.2
--- NOTE | 2022-12-01 09:13 | NUR ---
Follow-up visit; Patient's tyson is untouched and active as always. Ms Bejarano has interest in everything and everyone and thanked Hopper Operator for looking in on her as always and for offering prayer and a [place] along with God's blessings for healing.
[2022-12-01] MEDS ORDERED: PREDNISONE20 MG PO (11:33)
[2022-12-01 12:11] VITALS: BP 150/69; PULSE 57; TEMP 97.9
[2022-12-01 15:30] VITALS: BP 142/61; PULSE 60; TEMP 97.4
--- NOTE | 2022-12-01 16:15 | NUR ---
PT notified SW that the patient has 14 steps to get to her restroom and she was only able to do 2. PT feels like the patient is not appropriate to return home yet and recommend post-acute rehab. SW met with the patient and her daughter to discuss their recommendation. The patient is open to rehab and for SW to send referrals to local facilities. SW consulted [facility]. Araceli, with [facility], reports that they will see how the patient does over the weekend with therapy and how their bed situation will be. SW contacted and faxed a referral to [facility], [facility], and [facility]. Carlyle, at [facility], reports that they are full at this time. *Discharge plan: post-acute rehab. Referrals out*
--- NOTE | 2022-12-01 18:58 | NUR ---
Pt has had an uneventful day. Most of the time resting. Report will be given to night RN.
[2022-12-01 20:53] VITALS: BP 156/68; PULSE 55; TEMP 97.6
[2022-12-02] VITALS (7 sets, daily range): BP systolic 128–155; BP diastolic 60–68; PULSE 54–72; TEMP 97.6–99.1
[2022-12-02 06:34] LABS: BASO % 0.3 % (0.0-2.0); EOS % 0.3 % (0.0-4.0); GRAN # 8.2 K/mm3 (1.4-6.5); GRAN % 71.2 % (42.2-75.2); HEMATOCRIT 30.5 % (37.0-47.0); HEMOGLOBIN 9.1 g/dl (12.5-16.0); LYMPH # 1.8 K/mm3 (1.2-3.4); LYMPH % 15.5 % (20.0-51.0); MEAN CELL VOLUME 77 fl (80.0-100.0); MEAN CORPUSCULAR HEMOGLOBIN 23 pg (27-31); MEAN CORPUSCULAR HGB CONC 30 g/dl (33.0-37.0); MEAN PLATELET VOLUME 13.3 fl (7.4-10.4); MONO # 1.3 K/mm3 (0.1-0.6); MONO % 11.6 % (1.7-9.3); PLATELET COUNT 268 K/mm3 (130-400); RED BLOOD COUNT 3.94 M/mm3 (4.10-5.30); REDCELL DISTRIBUTION WIDTH-CV 14.7 % (11.5-14.5)
[2022-12-02 06:42] LABS: CALCIUM 9.6 mg/dL (8.4-10.2); CREATININE, serum 1.16 mg/dL (0.57-1.11); POTASSIUM 3.4 mmol/L (3.5-4.5)
--- NOTE | 2022-12-02 08:00 | NUR ---
Patient is watching TV, alert and oriented x 4, VSS, denies any pain, or discomfort at this time. Waiting for discharge. Assessment completed. No further needs at this time. Call light within reach.
--- NOTE | 2022-12-02 12:17 | NUR ---
Grape Pruner rounds: First attempted Grape Pruner visit, Patient's daughter called her cell phone. Patient asked Grape Pruner to return because she wanted prayer, then answered her call. Second visit: Patient was sitting in recliner. Nurse was finishing her visit. Grape Pruner waited in hallway until Nurse was finished. Grape Pruner sat on edge of Patient's bed with Patient's permission instead of standing at sink as during first attempted visit. Grape Pruner and Patient had discussion about tyson. Patient disagreed with Grape Pruner's active listening feedback and explained her view again. This time it appeared that Grape Pruner and Patient understood each other. Patient became fidgety. Patient stated that she had to use the rest room and wanted Grape Pruner to pray quickly so that she could go. Grape Pruner offered to have call light pushed so that Nurse could arrive about the time prayer was over. Patient stated that she could care for herself. Grape Pruner prayed. As Grape Pruner was leaving Patient stated that she and the full-time hospital Grape Pruner (Summer) are good friends. They have known each other a long time. Also as Grape Pruner was leaving, Patient wanted door closed.
--- NOTE | 2022-12-02 19:12 | NUR ---
Patient has had an uneventful day. Report given to night RN.
[2022-12-03 03:56] VITALS: BP 142/68; PULSE 60; TEMP 98.8
[2022-12-03 06:51] LABS: MEAN CELL VOLUME 75 fl (80.0-100.0); MEAN CORPUSCULAR HGB CONC 32 g/dl (33.0-37.0); MEAN PLATELET VOLUME 11.6 fl (7.4-10.4); PLATELET COUNT 272 K/mm3 (130-400); RED BLOOD COUNT 4.05 M/mm3 (4.10-5.30); REDCELL DISTRIBUTION WIDTH-CV 14.7 % (11.5-14.5)
[2022-12-03 06:59] LABS: HEMATOCRIT 30.5 % (37.0-47.0); HEMOGLOBIN 9.6 g/dl (12.5-16.0); MEAN CORPUSCULAR HEMOGLOBIN 24 pg (27-31)
[2022-12-03 07:06] LABS: CALCIUM 9.6 mg/dL (8.4-10.2); CREATININE, serum 1.11 mg/dL (0.57-1.11); POTASSIUM 3.5 mmol/L (3.5-4.5)
[2022-12-03 07:38] LABS: EOSINOPHIL 1 % (0-4); HYPOCHROMIA 2+; LYMPHOCYTE 16 % (20.0-51.0); MICROCYTOSIS 1+; MYELOCYTE 1 % (0-0); NEUTROPHILS 69 % (42.0-75.2); NUCLEATED RED BLOOD CELL 1 (0-6); PLATELET ESTIMATE NORMAL (NORMAL)
[2022-12-03 07:39] LABS: TARGET CELLS 1+
[2022-12-03 08:37] VITALS: BP 150/59; PULSE 59; TEMP 98
--- NOTE | 2022-12-03 09:30 | NUR ---
Patient is finishing her breakfast seated in the chair. Alert and oriented x 4, complains of some pain in her left foot. PRN provided. Assessment completed, meds provided. No further needs at this time. Call light within reach.
--- NOTE | 2022-12-03 12:54 | NUR ---
Dr. Wyatt informs patient is ready for discharge to SNF placement. Senior Enlisted Advisor reviewed patient notes, noting referrals to [facility], [facility], [facility], and [facility] have been placed. Senior Enlisted Advisor notes [facility] cannot assess until tomorrow, and [facility] has no beds available. Senior Enlisted Advisor contacted [facility] and Toy informs patient is approved for placement to SNF. He will call back with ETA for transportation. Senior Enlisted Advisor updates [facility] RN and patient. Patient requests information for patient address and phone contact, and she expresses gratitude as she is ready to start rehab in order to go home. She would like to contact her daughter to notify herself. Senior Enlisted Advisor faxed discharge documentation to [facility]. *Discharge today to [facility], awaiting notification of transportation ETA*
[2022-12-03 12:55] VITALS: BP 117/68; BP 136/66; PULSE 60; PULSE 94; TEMP 98.4
--- NOTE | 2022-12-03 13:23 | NUR ---
Toy [facility] calls to request flexibility, as he states their facility sent alot of staff home today due to 24. hr stomach bug and they do not have staffing after all to admit patient to SNF today, requesting follow up tomorrow. Firer Boiler jessica Bennett RNutilization management um nurse, [facility] RN and patient. *Discharge to [facility] SNF tomorrow*
[2022-12-03 15:30] VITALS: BP 153/52; PULSE 85; TEMP 98.2
[2022-12-03 19:57] VITALS: BP 128/60; PULSE 54; TEMP 98.4
[2022-12-04 00:22] VITALS: BP 136/50; PULSE 57; TEMP 98.2
[2022-12-04 04:42] VITALS: BP 167/78; BP 171/70; PULSE 56; TEMP 98.5
[2022-12-04 06:37] LABS: MEAN CELL VOLUME 77 fl (80.0-100.0); MEAN CORPUSCULAR HGB CONC 31 g/dl (33.0-37.0); MEAN PLATELET VOLUME 12.6 fl (7.4-10.4); PLATELET COUNT 274 K/mm3 (130-400); RED BLOOD COUNT 3.98 M/mm3 (4.10-5.30); REDCELL DISTRIBUTION WIDTH-CV 14.6 % (11.5-14.5)
[2022-12-04 06:42] LABS: HEMATOCRIT 30.6 % (37.0-47.0); HEMOGLOBIN 9.4 g/dl (12.5-16.0); MEAN CORPUSCULAR HEMOGLOBIN 24 pg (27-31)
[2022-12-04 06:47] LABS: CALCIUM 9.3 mg/dL (8.4-10.2); CREATININE, serum 1.21 mg/dL (0.57-1.11); POTASSIUM 3.6 mmol/L (3.5-4.5)
[2022-12-04 07:20] LABS: ANISOCYTOSIS 1+; EOSINOPHIL 2 % (0-4); LYMPHOCYTE 23 % (20.0-51.0); NEUTROPHILS 65 % (42.0-75.2); PLATELET ESTIMATE NORMAL (NORMAL)
[2022-12-04 07:24] LABS: OVALOCYTES 1+; TARGET CELLS 1+
[2022-12-04 07:25] LABS: SCHISTOCYTES 1+
[2022-12-04 07:45] VITALS: BP 148/51; PULSE 53; TEMP 98.5
[2022-12-04] MEDS ORDERED: NORCO 325 MG-101 TAB PO (08:29)
--- NOTE | 2022-12-04 08:41 | NUR ---
PT STATED CONCERN ABOUT HOW SHE IS NOT ABLE TO [facility] HOME MEDICATION AND HAS TO TAKE THE HOSPITAL MEDICATIONS INSTEAD. THAT SHE FEELS THAT THE PHARMACY HAS CHANGED HER MEDICATIONS AND THATS WHY HER BLOOD PRESSURE IS NOT WELLED CONTROLLED IT IS AT HOME.
--- NOTE | 2022-12-04 11:00 | NUR ---
Araceli, with [facility], reports that the patient is too functional and they will have to decline the patient. Toy, at [facility], confirms they are good to accept the patient. The clinical team is ready to discharge the patient today. BYRON met with the patient to review plan. The patient confirms she is agreeable with going to [facility] for a skilled stay. She states that she has already been in contact with her and he plans to meet her over at [facility]. BYRON presented and read the IM form outloud to the patient. The patient verbalized understanding and signed the form. BYRON provided her with a copy. The patient is to discharge today, 12/04, to [facility] for a skilled stay. Transportation was scheduled around 1300, via [facility]. BYRON informed the patient's RN of the time. No additional needs at this time.
--- NOTE | 2022-12-04 11:12 | NUR ---
TO LEAVE AT 1300
[2022-12-04 11:33] VITALS: BP 167/66; PULSE 63; TEMP 98.2
--- NOTE | 2022-12-04 13:12 | NUR ---
HALF-WAY HERE TO NAT INSTRUCTOR PT.
== END 2022-12-04 13:15 | DRG 546 ==
LOC: COL.ER 18:36 → MEDICAL 20:42
PROVIDERS: Nurse Practitioner; Student in an Organized Health Care Education/Training Program; ADMIT Internal Medicine
DX: M32.9 Systemic lupus erythematosus, unspecified (principal); M84.48XA Pathological fracture, other site, initial encounter for fracture; Z68.41 Body mass index [BMI] 40.0-44.9, adult; E78.5 Hyperlipidemia, unspecified; G47.30 Sleep apnea, unspecified; M10.9 Gout, unspecified; I12.9 Hypertensive chronic kidney disease with stage 1 through stage 4 chronic kidney disease, or unspecified chronic kidney disease; Z66 Do not resuscitate; M51.36 Other intervertebral disc degeneration, lumbar region; M25.59 Pain in other specified joint; N18.9 Chronic kidney disease, unspecified; F32.A Depression, unspecified; F41.9 Anxiety disorder, unspecified; N32.81 Overactive bladder; D50.9 Iron deficiency anemia, unspecified; T38.0X5A Adverse effect of glucocorticoids and synthetic analogues, initial encounter; M32.14 Glomerular disease in systemic lupus erythematosus; E66.9 Obesity, unspecified; G62.9 Polyneuropathy, unspecified; G43.909 Migraine, unspecified, not intractable, without status migrainosus; Z88.6 Allergy status to analgesic agent; Z88.8 Allergy status to other drugs, medicaments and biological substances; Z79.82 Long term (current) use of aspirin; Z23 Encounter for immunization
CPT/HCPCS: OP; G0378; J0696; J1650; J2270; J2930; J3370; J7030; J7040; J7050; J7512; J7517

== ENCOUNTER 2023-08-01 09:09 | Outpatient (RCR) | payer MEDICARE, OTHER ==
[~2023-08-01 09:09] MED LIST changes: +AVODART 0.5MG0.5 MG PO; +CRESTOR40 MG PO; +CYMBALTA 60MG60 MG PO; +MINOXIDIL 2.5 PO; +MYRBETR50MG PO; +NUVIGIL150 MG PO; +PREDNISONE 5MG5 MG PO; +VITAMIN C500 MG PO; +VITAMIND3 5000 PO
== END 2023-08-16 | disposition home or self-care (01) ==
LOC: WSPT
DX: M25.561 Pain in right knee (principal); G89.29 Other chronic pain; M48.062 Spinal stenosis, lumbar region with neurogenic claudication; M54.17 Radiculopathy, lumbosacral region

== ENCOUNTER 2023-09-14 12:45 | Outpatient (RCR) | payer MEDICARE | END 2023-09-16 | disposition home or self-care (01) | LOC: WSPT | DX: M25.561 Pain in right knee (principal); M48.062 Spinal stenosis, lumbar region with neurogenic claudication ==

== ENCOUNTER 2023-10-03 13:30 | Outpatient (RCR) | payer MEDICARE | END 2023-10-17 | disposition home or self-care (01) | LOC: WSPT | DX: M48.062 Spinal stenosis, lumbar region with neurogenic claudication (principal); M25.561 Pain in right knee ==

== ENCOUNTER 2023-11-14 11:15 | Outpatient (RCR) | payer MEDICARE | END 2023-11-15 | disposition home or self-care (01) | LOC: WSPT | DX: M48.062 Spinal stenosis, lumbar region with neurogenic claudication (principal); M25.562 Pain in left knee ==

== ENCOUNTER 2023-12-06 09:00 | Outpatient (RCR) | payer MEDICARE | END 2023-12-16 | disposition home or self-care (01) | LOC: WSPT | DX: M25.561 Pain in right knee (principal); M48.062 Spinal stenosis, lumbar region with neurogenic claudication; M54.17 Radiculopathy, lumbosacral region; G89.29 Other chronic pain ==